=== PATIENT | female | born 1935 | race Caucasian/White ===

== ENCOUNTER 2017-06-23 13:25 | Inpatient (IN) | payer MEDICARE, BC ==
[~2017-06-23] VITALS: Ht 160 cm; Wt 72.6 kg
[~2017-06-23 13:25] MED LIST: ASPIRIN-LOW81 MG ORAL; CLONAZEPAM1 MG PO; SYNTHROID137 MCG ORAL; WELLBUTRIN SR200 MG ORAL; ZETIA10 MG ORAL
[2017-06-23] MEDS ORDERED: Sodium Chloride 500ML 500 ML IV ONE (13:27)
[2017-06-23 13:38] VITALS: BP 135/75
--- NOTE | 2017-06-23 14:13 | Emergency Room Report ---
History of Present Illness General Chief Complaint: Syncope Source: Patient, EMS Present Illness HPI 81-year-old female presents ED status post syncopal episode. Patient states she was out today and was standing up filling out a form when she felt dizzy and fell and hit her head. Upon arrival patient states she feels better. Denies any headache. Denies any chest pain or shortness of breath. Patient states the last time she passed out like this she was "dehydrated". States she is compliant with her medications. Denies any alcohol or drug use. No other aggravating or relieving factors. Denies any other associated symptoms Allergies: Coded Allergies: PENICILLINS (Unverified Allergy, Unknown, 06/23/17) THIAMINE (VITAMIN B1) (Unverified Allergy, Unknown, 06/23/17) Patient History Past Medical History: none Past Surgical History: none Pertinent Family History: none Social History: Denies: smoking, alcohol use, drug use Now: No Immunizations: UTD Reviewed Nursing Documentation: PMH: Agreed, PSxH: Agreed Review of Systems All Other Systems: negative except mentioned in HPI Physical Exam Vital Signs Date Time Temp Pulse Resp B/P (MAP) Pulse Ox O2 Delivery O2 Flow Rate FiO2 06/23/17 13:12 76 14 135/75 93 Room Air Sp02 EP Interpretation: reviewed, normal General Appearance: no apparent distress, alert, GCS 15, non-toxic Head: normocephalic, atraumatic Eyes: bilateral eye normal inspection, bilateral eye PERRL ENT: hearing grossly normal, normal pharynx, no angioedema, normal voice Neck: full range of motion, supple/symm/no masses Respiratory: chest non-tender, lungs clear, normal breath sounds, speaking full sentences Cardiovascular #1: regular rate, rhythm, no edema Cardiovascular #2: 2+ carotid (R), 2+ carotid (L), 2+ radial (R), 2+ radial (L) , 2+ dorsalis pedis (R), 2+ dorsalis pedis (L) Gastrointestinal: normal bowel sounds, non tender, soft, non-distended, no guarding, no rebound Rectal: deferred Genitourinary: normal inspection, no CVA tenderness Musculoskeletal: back normal, gait/station normal, normal range of motion, non- tender Neurologic: alert, oriented x3, responsive, motor strength/tone normal, sensory intact, speech normal Psychiatric: judgement/insight normal, memory normal, mood/affect normal, no suicidal/homicidal ideation Reflexes: 3+ bicep (R), 3+ bicep (L), 3+ tricep (R), 3+ tricep (L), 3+ knee (R) , 3+ knee (L) Skin: normal color, no rash, warm/dry, well hydrated Lymphatic: no adenopathy Medical Decision Making Diagnostic Impression: Primary Impression: Syncope Qualified Codes: R55 - Syncope and collapse ER Course Hospital Course 81-year-old F presents ED s/p syncopal episode. Differential diagnoses include: ME/unstable angina, arrythmia, dehydration, CVA/ TIA Clinical course Patient placed on stretcher. on cardiac cath technologist. After initial history and physical I ordered labs, EKG, chest x-ray, IVFs, CT Brain, CT Cspine labs reviewed- no leukocytosis, hemoglobin/hematocrit ok, electrolytes okay, troponins negative EKG- NSR, no acute ishcemic changes interpreted by me Chest x-ray- L sided effusion CT brain-unremarkable CT Cspine no acute fx I spoke to PMD Dr. Aguilar Navarro; He agrees to admission. Requests that we admit to Dr. Roberts Case discussed with Dr. Roberts and he agreed to accept the patient to his service for further care and support I. I feel this is a highly complex case requiring extensive working including EKG/Rhythm strip, Xray/CT/US, Blood/urine lab work, repeat exams while in ED, and administration of strong opiates/narcotics for pain control, admission to hospital or close patient follow up. Diagnosis - syncope admitted to telemetry in serious condition Labs Test 06/23/17 14:10 06/23/17 16:10 06/24/17 21:45 06/25/17 05:40 Total Creatine Kinase 165 U/L (26-308) Creatine Kinase MB 3.7 NG/ML (0.0-3.6) Creatine Kinase MB Relative Index 2.2 Pro-B-Type Natriuretic Peptide 80 pg/mL (0-125) Urine Color Pale yellow Urine Appearance Clear Urine pH 6 (4.5-8.0) Urine Specific [place] 1.020 (1.005-1.035) Urine Protein Negative (NEGATIVE) Urine Glucose (UA) Negative (NEGATIVE) Urine Ketones Negative (NEGATIVE) Urine Occult Blood 1+ (NEGATIVE) Urine Nitrite Negative (NEGATIVE) Urine Bilirubin Negative (NEGATIVE) Urine Urobilinogen Normal MG/DL (0.0-1.0) Urine Leukocyte Esterase 2+ (NEGATIVE) Urine RBC 5-10 /HPF (0 - 2) Urine WBC 5-10 /HPF (0 - 2) Urine Squamous Epithelial Cells Occasional /LPF Urine Bacteria Few /HPF (NONE) Troponin I 0.002 ng/mL (0.000-0.056) White Blood Count 6.6 K/UL (4.8-10.8) Red Blood Count 4.47 M/UL (4.20-5.40) Hemoglobin 14.1 G/DL (12.0-16.0) Hematocrit 43.0 % (37.0-47.0) Mean Corpuscular Volume 96 FL (80-99) Mean Corpuscular Hemoglobin 31.5 PG (27.0-31.0) Mean Corpuscular Hemoglobin Concent 32.7 G/DL (32.0-36.0) Red Cell Distribution Width 13.3 % (11.6-14.8) Platelet Count 265 K/UL (150-450) Mean Platelet Volume 7.9 FL (6.5-10.1) Neutrophils (%) (Auto) 68.1 % (45.0-75.0) Lymphocytes (%) (Auto) 19.6 % (20.0-45.0) Monocytes (%) (Auto) 10.0 % (1.0-10.0) Eosinophils (%) (Auto) 1.5 % (0.0-3.0) Basophils (%) (Auto) 0.9 % (0.0-2.0) Sodium Level 140 MMOL/L (136-145) Potassium Level 4.1 MMOL/L (3.5-5.1) Chloride Level 106 MMOL/L (98-107) Carbon Dioxide Level 25 MMOL/L (21-32) Anion Gap 9 mmol/L (5-15) Blood Urea Nitrogen 17 mg/dL (7-18) Creatinine 1.0 MG/DL (0.55-1.30) Estimat Glomerular Filtration Rate mL/min (>60) Glucose Level 101 MG/DL (74-106) Calcium Level 8.9 MG/DL (8.5-10.1) Total Bilirubin 0.7 MG/DL (0.2-1.0) Aspartate Amino Transf (AST/SGOT) 17 U/L (15-37) Alanine Aminotransferase (ALT/SGPT) 28 U/L (12-78) Alkaline Phosphatase 68 U/L (46-116) Total Protein 7.2 G/DL (6.4-8.2) Albumin 3.4 G/DL (3.4-5.0) Globulin 3.8 g/dL Albumin/Globulin Ratio 0.9 (1.0-2.7) EKG Diagnostic Results Rate: normal Rhythm: NSR ST Segments: no acute changes ASA given to the pt in ED: No Rhythm Strip Diag. Results EP Interpretation: yes Rhythm: NSR, no PVC's, no ectopy Chest X-Ray Diagnostic Results Chest X-Ray Diagnostic Results : Chest X-Ray Ordered: Yes # of Views/Limited/Complete: 1 View Indication: Other - syncope Interpretation: no consolidation, no pneumothorax, no acute cardiopulmonary disease, other - atelectasis/effusion Impression: Other - small L effusion Electronically Signed by: Electronically signed by Dariusz Barnes MD CT/MRI/US Diagnostic Results CT/MRI/US Diagnostic Results #1: Imaging Test Ordered: CT Head Impression no acute process CT/MRI/US Diagnostic Results #2: Imaging Test Ordered: CT Cspine Impression no acute process Last Vital Signs Date Time Temp Pulse Resp B/P (MAP) Pulse Ox O2 Delivery O2 Flow Rate FiO2 06/23/17 13:38 77 14 135/75 93 Room Air Status: improved Disposition: ADMITTED INPATIENT Condition: Serious Signed Out To: DARIUSZ Ruiz M.D. Jun 23, 2017 14:13
[2017-06-23 14:27] LABS: BASOPHILS % (AUTO) 1.3 % (0.0-2.0); EOSINOPHILS % (AUTO) 1.6 % (0.0-3.0); LYMPHOCYTES % (AUTO) 17.5 % (20.0-45.0); MEAN CORPUSCULAR HEMOGLOBIN 31.2 PG (27.0-31.0); MEAN CORPUSCULAR HGB CONC 32.3 G/DL (32.0-36.0); MEAN CORPUSCULAR VOLUME 96 FL (80-99); MONOCYTES % (AUTO) 10.1 % (1.0-10.0); NEUTROPHILS % (AUTO) 69.5 % (45.0-75.0); PLATELET COUNT 260 K/UL (150-450); RED CELL DISTRIBUTION WIDTH 13.4 % (11.6-14.8); WHITE BLOOD COUNT 9.5 K/UL (4.8-10.8)
[2017-06-23 14:35] LABS: ANION GAP 9 mmol/L (5-15); CALCIUM 8.8 MG/DL (8.5-10.1); CARBON DIOXIDE 28 MMOL/L (21-32); CHLORIDE 105 MMOL/L (98-107); CREATININE 1.3 MG/DL (0.55-1.30); POTASSIUM 4.3 MMOL/L (3.5-5.1); SODIUM 142 MMOL/L (136-145)
--- NOTE | 2017-06-23 14:38 | Diagnostic Imaging Report ---
Indications: Loss of consciousness, syncope Technique: Spiral acquisitions obtained through the brain. Angled axial and coronal 5 x 5 mm slices were reconstructed. Total dose length product 1305 mGycm. CTDI vol(s) 70 mGy. Dose reduction achieved using automated exposure control Comparison: None Findings: There is mild age-related enlargement of the ventricles and minimally of the extra axial CSF spaces. There is mild periventricular deep white matter low-attenuation. Possible old lacunar infarcts are seen in the internal capsules bilaterally. No acute intracranial hemorrhage or edema. No mass effect nor midline shift. Normal cornelius-white differentiation. The calvarium is intact. 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
[2017-06-23 14:52] LABS: ALANINE AMINOTRANSFERASE 31 U/L (12-78); ALBUMIN/GLOBULIN RATIO 0.9 (1.0-2.7); ASPARTATE AMINO TRANSFERASE 31 U/L (15-37); CKMB 3.7 NG/ML (0.0-3.6); TOTAL PROTEIN 7.3 G/DL (6.4-8.2)
--- NOTE | 2017-06-23 14:57 | Diagnostic Imaging Report ---
Indication: SYNCOPE, head pain, neck pain Technique: Spiral acquisitions obtained through the cervical spine. No IV contrast utilized. Multiplanar reconstructions were generated. Total dose length product 297 mGycm. CTDIvol(s) 13 mGy. Dose reduction achieved using automated exposure control Comparison: None Findings: There is reversal of the normal cervical lordosis. There is minimal anterior offset of C3 on C4. Bony alignment is otherwise normal. No acute fractures. No dislocations. There is degenerative narrowing of the anterior atlantoaxial joint. There is a subchondral cysts within the odontoid. There is degenerative narrowing of the lateral C1-2 joints, and a subchondral degenerative cyst within the left C1 lateral mass. At C2-3, the disc space is preserved. No significant disc bulge or protrusion, spinal stenosis, or neural foraminal stenosis. The spinal canal and neural foramina are somewhat obscured by streak artifact from dental amalgam. There is fusion, likely congenital, of the right C2-3 facet. There is degenerative change of the left facet. At C3-4, the disc space is preserved. No significant disc bulge or protrusion, spinal stenosis, or neural foraminal stenosis. There is considerable degenerative proliferative change of the right facet, less severe degenerative change of the right facet At C4-5, there is moderate degenerative disc narrowing. No significant disc bulge or protrusion. Posterior osteophytes on the left may impinge slightly on the left lateral recess. There is moderate to severe narrowing of the left neural foramen. There is minimal narrowing of the right neural foramen. There is bilateral mild facet arthrosis. At C5-6, there is mild to moderate degenerative disc narrowing. There is moderate to severe left neural foraminal stenosis. No significant disc bulge or protrusion or spinal stenosis there is mild bilateral facet arthrosis. At C6-7, the disc space is preserved. No significant disc bulge or protrusion, spinal stenosis, or neural foraminal narrowing. At C7-T1, there is mild bilateral facet arthrosis. No significant disc bulge or protrusion, disc space narrowing, spinal stenosis, or neural foraminal stenosis. The included extraspinal soft tissues are unremarkable except for some pleural scarring at the right lung apex. There is mucosal disease of the right sphenoid sinus. Impression: No acute bony trauma Degenerative changes, as detailed on a level by level basis above Sinus disease The CT scanner at [facility] is accredited by the [employer] and the scans are performed using protocols designed to limit radiation exposure to as low as reasonably achievable to attain images of sufficient resolution adequate for diagnostic evaluation.
--- NOTE | 2017-06-23 15:38 | Diagnostic Imaging Report ---
Indication: SYNCOPE Technique: One view of the chest Comparison: None Findings: Left lateral hemidiaphragm is obscured. Small effusion or atelectasis/patchy consolidation not excludable. The remainder of the lungs and pleural spaces are clear. Surgical clips are seen in the right axilla Impression: Possible small left pleural effusion and possible focal atelectasis or consolidation
[2017-06-23 16:22] VITALS: BP 128/59
[2017-06-23 16:27] LABS: APPEARANCE,URINE CLEAR; KETONES,URINE NEGATIVE (NEGATIVE); LEUKOCYTE ESTERASE ,URINE 2+ (NEGATIVE); NITRITE,URINE NEGATIVE (NEGATIVE); PH,URINE 6 (4.5-8.0); PROTEIN,URINE NEGATIVE (NEGATIVE); UROBILINOGEN,URINE NORMAL MG/DL (0.0-1.0)
[2017-06-23 16:39] LABS: BACTERIA,URINE FEW /HPF; SQUAMOUS EPITHELIAL CELL,UR OCCASIONAL /LPF (NONE/OCC)
--- NOTE | 2017-06-23 17:35 | History & Physical ---
History and Physical History & Physicial dict syncope azotemia UTI MIHAELA BARAJAS Jun 23, 2017 17:35
[2017-06-23] MEDS ORDERED: SYNTHROID75 MCG ORAL (17:48)
[2017-06-23] MEDS ORDERED: KLONOPIN0.5 MG ORAL (17:48)
[2017-06-23] MEDS ORDERED: TYLENOL EXTRA500 MG ORAL (17:48)
[2017-06-23] MEDS ORDERED: Acetaminophen 500mg (ES) tab ORAL PRN (18:00)
[2017-06-23] MEDS ORDERED: clonazePAM 0.5mg tab ORAL PRN (18:00)
[2017-06-23] MEDS: Bactrim DS (160mg/800mg) tab ORAL SCH (18:51)
[2017-06-23] MEDS: D5 1/2NS 1,000 ML IV SCH (19:00)
[2017-06-23 20:00] VITALS: BP 139/63
--- NOTE | 2017-06-23 20:30 | History and Physical Report ---
DATE OF ADMISSION: 06/23/2017 CHIEF COMPLAINT: Syncope. HISTORY OF PRESENT ILLNESS: This 81-year-old woman was at [facility] signing up for a class when she suddenly felt faint and passed out hitting her head. She was brought to the emergency room by paramedics. She states this has never happened to her before. She has had occasional episodes of dizziness. She had evaluation and found no significant findings including a negative CT of the brain. She had a mild azotemia and a few white cells in the urine. She has no complaints of dysuria. She has been eating and drinking normally and has felt well up until this event. PAST MEDICAL HISTORY: Hyperlipidemia, hypothyroidism, anxiety, and osteoarthritis. She states she has had a cardiac evaluation that was negative in the past. ALLERGIES: Penicillin and thiamine. SOCIAL HISTORY: She does not drink or smoke and does not use alcohol. She quit smoking 40 years ago. REVIEW OF SYSTEMS: Otherwise unremarkable. She has no chest pain or shortness of breath. She has no nausea, vomiting or diarrhea. She has no dysuria. PHYSICAL EXAMINATION: GENERAL: The patient is overweight. VITAL SIGNS: Normal. HEENT: The head is normocephalic. NECK: No jugular venous distention. CHEST: Clear. CARDIAC: Rhythm is regular. ABDOMEN: Soft and nontender. EXTREMITIES: No clubbing, cyanosis, or edema. NEUROLOGIC: Able to move all extremities. Alert and oriented. LABORATORY AND DIAGNOSTIC DATA: Laboratory studies show mild azotemia with BUN 35 and creatinine 1.3. Electrolytes are normal. Albumin is normal. Hematology is normal. Urinalysis shows 5 to 10 white cells and 5 to 10 red cells. IMPRESSION: 1. Syncope. 2. Mild azotemia, possible dehydration or chronic kidney disease. 3. Mild urinary tract infection. 4. Hypothyroid. 5. Hyperlipidemia. PLAN: We will give intravenous fluids and Bactrim. Carotid ultrasound and echocardiogram will be obtained. We will monitor her heart and check troponin. Cardiology consultations has been requested. Kd Roberts M.D. DR: JENNIFER JOB#: [id number] CC: Steven Hanson M.D.
[2017-06-24] VITALS: BP 142/74
[2017-06-24 04:00] VITALS: BP 152/78
[2017-06-24 08:00] VITALS: BP 159/74
[2017-06-24] MEDS: D5 1/2NS 1,000 ML IV SCH ×2 (08:22→21:28)
[2017-06-24] MEDS: Aspirin EC 81mg tab ORAL SCH (08:23)
[2017-06-24] MEDS: Bactrim DS (160mg/800mg) tab ORAL SCH ×2 (08:25→21:27)
[2017-06-24] MEDS: BuPROPion SR 100mg tab ORAL SCH (09:13)
--- NOTE | 2017-06-24 11:26 | Cardiology Report ---
APPROVED REPORT EKG Measurement Heart [id number] Normal sinus rhythm Possible Anterior infarct, age undetermined Abnormal ECG
[2017-06-24 12:00] VITALS: BP 144/74
[2017-06-24 16:00] VITALS: BP 155/77
[2017-06-24 20:00] VITALS: BP 133/75
[2017-06-25] VITALS: BP 133/87
[2017-06-25 07:45] LABS: BASOPHILS % (AUTO) 0.9 % (0.0-2.0); EOSINOPHILS % (AUTO) 1.5 % (0.0-3.0); LYMPHOCYTES % (AUTO) 19.6 % (20.0-45.0); MEAN CORPUSCULAR HEMOGLOBIN 31.5 PG (27.0-31.0); MEAN CORPUSCULAR HGB CONC 32.7 G/DL (32.0-36.0); MEAN CORPUSCULAR VOLUME 96 FL (80-99); MEAN PLATELET VOLUME 7.9 FL (6.5-10.1); NEUTROPHILS % (AUTO) 68.1 % (45.0-75.0); PLATELET COUNT 265 K/UL (150-450); RED BLOOD COUNT 4.47 M/UL (4.20-5.40); RED CELL DISTRIBUTION WIDTH 13.3 % (11.6-14.8); WHITE BLOOD COUNT 6.6 K/UL (4.8-10.8)
[2017-06-25 08:00] VITALS: BP 135/77
[2017-06-25 08:00] LABS: ALANINE AMINOTRANSFERASE 28 U/L (12-78); ALBUMIN/GLOBULIN RATIO 0.9 (1.0-2.7); ANION GAP 9 mmol/L (5-15); ASPARTATE AMINO TRANSFERASE 17 U/L (15-37); CALCIUM 8.9 MG/DL (8.5-10.1); CARBON DIOXIDE 25 MMOL/L (21-32); CHLORIDE 106 MMOL/L (98-107); POTASSIUM 4.1 MMOL/L (3.5-5.1); SODIUM 140 MMOL/L (136-145); TOTAL PROTEIN 7.2 G/DL (6.4-8.2)
[2017-06-25] MEDS: Aspirin EC 81mg tab ORAL SCH (09:16)
[2017-06-25] MEDS: Bactrim DS (160mg/800mg) tab ORAL SCH (09:17)
[2017-06-25] MEDS: BuPROPion SR 100mg tab ORAL SCH (09:17)
[2017-06-25] MEDS: D5 1/2NS 1,000 ML IV SCH (11:00)
[2017-06-25 12:00] VITALS: BP 140/71
--- NOTE | 2017-06-25 12:19 | General Progress Note ---
Assessment/Plan Assessment/Plan dc held last night due to dizziness and weakness today she feels fine trop neg ekg no changes dc home Subjective Cardiovascular: Denies: chest pain Respiratory: Denies: shortness of breath Allergies: Coded Allergies: PENICILLINS (Unverified Allergy, Unknown, 06/23/17) THIAMINE (VITAMIN B1) (Unverified Allergy, Unknown, 06/23/17) Objective Last 24 Hour Vital Signs Date Time Temp Pulse Resp B/P (MAP) Pulse Ox O2 Delivery O2 Flow Rate FiO2 06/25/17 12:01 66 69 80 06/25/17 12:00 97.5 67 18 140/71 93 06/25/17 08:00 65 06/25/17 08:00 98.2 66 19 135/77 91 06/25/17 04:00 57 06/25/17 00:00 67 66 80 06/25/17 00:00 96.6 67 20 133/87 91 Room Air 06/25/17 00:00 60 06/24/17 20:00 73 06/24/17 20:00 97.2 68 20 133/75 92 Room Air 06/24/17 16:00 73 06/24/17 16:00 96.1 70 19 155/77 Room Air Intake and Output 06/25/17 06/26/17 19:00 07:00 Intake Total 150 ml Balance 150 ml IV Total 150 ml Laboratory Tests 06/24/17 14:00: Troponin I 0.000 06/24/17 21:45: Troponin I 0.002 06/25/17 05:40: White Blood Count 6.6, Red Blood Count 4.47, Hemoglobin 14.1, Hematocrit 43.0, Mean Corpuscular Volume 96, Mean Corpuscular Hemoglobin 31.5H, Mean Corpuscular Hemoglobin Concent 32.7, Red Cell Distribution Width 13.3, Platelet Count 265, Mean Platelet Volume 7.9, Neutrophils (%) (Auto) 68.1, Lymphocytes (%) (Auto) 19.6L, Monocytes (%) (Auto) 10.0, Eosinophils (%) (Auto) 1.5, Basophils (%) ( Auto) 0.9, Sodium Level 140, Potassium Level 4.1, Chloride Level 106, Carbon Dioxide Level 25, Anion Gap 9, Blood Urea Nitrogen 17, Creatinine 1.0, Estimat Glomerular Filtration Rate , Glucose Level 101, Calcium Level 8.9, Total Bilirubin 0.7, Aspartate Amino Transf (AST/SGOT) 17, Alanine Aminotransferase ( ALT/SGPT) 28, Alkaline Phosphatase 68, Total Protein 7.2, Albumin 3.4, Globulin 3.8, Albumin/Globulin Ratio 0.9L Height (Feet): 5 Height (Inches): 3.00 Weight (Pounds): 160 General Appearance: no apparent distress Cardiovascular: normal rate Respiratory/Chest: lungs clear MIHAELA BARAJAS Jun 25, 2017 12:19
[2017-06-25] MEDS ORDERED: D5 1/2NS 1000ml IV ONE (13:29)
--- NOTE | 2017-06-25 15:15 | Consultation ---
DATE OF CONSULTATION: 06/23/2017 CARDIOLOGY CONSULTATION CONSULTING PHYSICIAN: Steven Hanson M.D. REQUESTING PHYSICIAN: Kd Roberts M.D. REASON FOR CONSULTATION: Syncope. HISTORY OF PRESENT ILLNESS: This 81-year-old [place] . She was alone at the diner table with no surrounding people. No warmth. No discomfort, but suddenly felt faint and passed out. She apparently fell fully flat on her head with a loud bang. It was witnessed by staff and paramedics were summoned. The patient woke up with no sequelae, having headache. She did not have loss of bladder or bowel function. No seizure activity. The patient was seen in the emergency room and admitted for further management. A CAT scan of the brain revealed no bleed and diffuse white matter disease. No acute process. PAST MEDICAL HISTORY: Hyperlipidemia, hypothyroidism, and osteoarthritis. MEDICATIONS PRIOR TO ADMISSION: None. ALLERGIES: Thiamin and penicillin. SOCIAL HISTORY: Quit smoking over 40 years ago. No alcohol or substance abuse. REVIEW OF SYSTEMS: Notable. She has felt lightheaded and dizzy on some occasions, but never passed out. She did have a cardiac workup in the past few years that included a stress test that was normal. There is no known history of irregular heartbeats, seizures, or strokes with no history of diabetes or thyroid disorder. There is no history of blood clots in the legs or asthma. PHYSICAL EXAMINATION: VITAL SIGNS: Blood pressure 138/80, pulse 68, respiratory rate 18, and afebrile. HEENT: Conjunctivae are pink. Sclerae are anicteric. Oropharynx clear. NECK: Supple. Jugular venous pressure normal. No bruits. No carotid sinus hypersensitivity. LUNGS: Clear. CARDIAC: Regular. Normal S1 and S2. No murmur. There is a fourth heart sound. ABDOMEN: Soft and nontender. EXTREMITIES: Good pulses. No edema. NEUROLOGIC: Nonfocal. Occiput has a hematoma that is tender. LABORATORY DATA: EKG sinus rhythm with no acute abnormalities. Labs are reviewed and notable for BUN of 35 and creatinine 1.3. Electrolytes normal. IMPRESSION: Syncopal episode, at present appears to be vagally mediated. There does not appear to be any structural heart disease or evidence of cardiac arrhythmia. Contributing factors likely to include hypovolemia, dehydration, azotemia, and possible urinary tract infection. PLAN: 1. Hydrate with IV fluids. 2. Check orthostatics, carotid ultrasound, and 2D echocardiogram. 3. Monitor orthostatic blood pressure. 4. Check thyroid panel. 5. Continue cardiac monitoring. Steven Hanson M.D. DR: JOEL JOB#: [id number] CC:
--- NOTE | 2017-06-25 15:30 | Progress Note ---
DATE: 06/24/2017 CARDIOLOGY PROGRESS NOTE SUBJECTIVE: The patient was seen twice today, 12 noon and 11:30 p.m. The patient initially had no complaints. Later in the afternoon, felt dizzy and lightheaded upon standing up. OBJECTIVE: VITAL SIGNS: Blood pressure 136/81 lying and 145/86 standing. Monitored rhythm sinus. No ectopy. Heart rate in the 60s, respiratory rate 18. She is afebrile. HEENT: There is an occipital hematoma. NECK: Supple. Carotid sinus massage negative. LUNGS: Clear. CARDIAC: Regular. Normal S1, S2 with no murmur. ABDOMEN: Soft. No edema. IMAGING: Carotid duplex, no flow-limiting abnormalities. Echocardiogram, normal ejection fraction and no significant valvular disease. IMPRESSION: 1. No signs of orthostasis at this time. Possible orthostasis prior to admission with prerenal azotemia. 2. Hypovolemia. 3. Dehydration. 4. Syncope, most likely due to vasovagally mediated event. Presently, no signs of structural heart disease. PLAN: 1. Maintain hydration. 2. Cardiac monitoring. 3. Mobilize. 4. No additional diagnostic studies presently planned. 5. If recurring syncope or near syncopal episodes, may consider outpatient study. Steven Hanson M.D. DR: JOEL JOB#: [id number] CC:
--- NOTE | 2017-06-26 21:01 | Progress Note ---
DATE: 06/25/2017 CARDIOLOGY PROGRESS NOTE SUBJECTIVE: The patient is without dizziness this morning. Monitored rhythm remains sinus with no ectopy. OBJECTIVE: VITAL SIGNS: Continued to reveal no signs of orthostasis. HEENT: Mild occipital hematoma. NECK: Supple. LUNGS: Clear. CARDIAC: Regular. Normal S1, S2. ABDOMEN: Soft. EXTREMITIES: No edema. LABORATORY DATA: White count 5.5 and hemoglobin 14.1. Chemistry panel entirely within normal limits. IMPRESSION AND PLAN: 1. Vasovagally-mediated syncopal episode. No signs of orthostatic hypotension. 2. Mild hypovolemia, dehydration, and prerenal azotemia on admission, resolved and corrected with IV fluid hydration. No signs of flow-limiting carotid artery disease. 3. Normal cardiac ejection fraction without hemodynamically significant valve disease. 4. Stable for outpatient management. 5. Maintain adequate hydration. Consider electrophysiologic evaluation for tilt-table study in the event of recurring syncopal episodes. Steven Hanson M.D. DR: JAROD JOB#: [id number] CC:
--- NOTE | 2017-06-27 07:54 | Discharge Summary ---
Discharge Summary Hospital Course Date of Admission Jun 23, 2017 at 17:48 Date of Discharge Jun 25, 2017 at 13:30 Admitting Diagnosis SYNCOPE HPI Conchis Wong is a 81 year old female who was admitted on Jun 23, 2017 at 17:48 for Syncope Hospital Course dc summary #[id number] Discharge Medications Continued Medications: Acetaminophen* (Tylenol Extra Strength*) 500 Mg Tablet 500 MG ORAL Q4HR PRN for Mild Pain/Temp > 100.5, TAB 0 Refills Aspirin (Aspirin EC) 81 Mg Tablet.dr 81 MG ORAL DAILY, TAB Bupropion Hcl (Wellbutrin Sr) 200 Mg Tablet.er 200 MG ORAL for 30 Days, TAB 0 Refills Clonazepam (Clonazepam) 1 Mg Tablet 1 MG PO, TAB Clonazepam* (Klonopin*) 0.5 Mg Tablet 0.5 MG ORAL Q4HR PRN for For Anxiety, #15 TAB 0 Refills Ezetimibe (Zetia*) 10 Mg Tablet 10 MG ORAL BEDTIME, TAB Levothyroxine Sodium* (Synthroid*) 75 Mcg Tablet 75 MCG ORAL DAILY, TAB Take in the morning on an empty stomach, at least 30 minutes before food. Discharge Condition Upon Discharge: stable Discharge Disposition Patient was discharged to Home (01) Discharge Diagnoses: Discharge Instructions Discharge Instructions Special Instructions I have been assigned to complete a D/C Summary on this account. I was not involved in the patient management Juliana Chen NP ([place]) Jun 27, 2017 07:54
--- NOTE | 2017-06-27 10:18 | Cardiology Report ---
APPROVED REPORT EXAM: Two-dimensional and M-mode echocardiogram with Doppler and color Doppler. INDICATION Syncope M-Mode DIMENSIONS IVSd0.7 (0.7-1.1cm)Left Atrium (MM)2.3 (1.6-4.0cm) LVDd4.4 (3.5-5.6cm)Aortic Root2.3 (2.0-3.7cm) PWd1.0 (0.7-1.1cm)Aortic Cusp Exc.1.7 (1.5-2.0cm) LVDs1.9 (2.5-4.0cm) PWs2.3 cm Other Information Technically limited study due to poor acoustical windows. Normal left ventricular chamber size, systolic function and wall motion to extent visualized. Left ventricular ejection fraction grossly estimated to be 65%. Study quality precludes accurate assessment of regional wall motion. No left ventricular hypertrophy. No evidence of pericardial effusion. All other cardiac chamber sizes are within normal limits. Focal aortic valve sclerosis with adequate cusp excursion. Thickened mitral valve leaflets with normal excursion. Mitral annulus and aortic root calcification. Pulmonic valve not well visualized. Normal tricuspid valve structure. A color flow and spectral Doppler study was performed and revealed: Mild aortic insufficiency. Mild mitral regurgitation. Mitral diastolic velocities suggest reduced left ventricular relaxation c/w mild LV diastolic dysfunction (Grade I). Mild tricuspid regurgitation. Tricuspid systolic velocities suggests peak right ventricular systolic pressure of 33 mmHg. Trace pulmonic regurgitation present.
--- NOTE | 2017-06-27 20:15 | Discharge Summary 2 SIG ---
DATE OF ADMISSION: 06/23/2017 DATE OF DISCHARGE: 06/25/2017 REASON FOR ADMISSION: 81-year-old female with past medical history significant for hyperlipidemia, anxiety, hypothyroidism, and osteoarthritis was in [facility] for signing in to class when she felt fainted and passed out. Paramedics brought her to emergency room for evaluation. The patient reported prior occasional episodes of dizziness. Upon evaluation in the emergency room, CT of the head revealed no acute intracranial pathology. Laboratory workup showed mild azotemia with BUN -35 and creatinine -1.3. Urinalysis with pyuria, but no dysuria. No urinary symptoms. The patient stated that she was in good state of health prior to the episode. The patient had a cardiac evaluation in the past, which was negative. EKG revealed normal sinus rhythm. Troponin was negative. The patient was admitted to telemetry floor for further workup for syncope. ADMITTING DIAGNOSES: 1. Syncope. 2. Mild azotemia. 3. Possible dehydration. 4. Possible chronic kidney disease. 5. Mild urinary tract infection. 6. Hypothyroidism. 7. Hyperlipidemia. HOSPITAL COURSE: The patient was admitted to telemetry floor for cardiac monitoring. Cardiology consult was requested. The patient was initially on intravenous fluids. Cardiology consult was requested. Orthostatic vital signs revealed no evidence of orthostatic changes. Echocardiogram revealed preserved ejection fraction of 65%. No left ventricular hypertrophy. Normal left ventricular chamber size, systolic function, and wall motion. Right ventricular systolic pressure of 33. The patient was initially empirically started on antibiotics for possible urinary tract infection, however , urine culture grew mixed urogenital contaminants. Antibiotics stopped. Serial troponin were negative. EKG revealed no acute ST changes. No evidence of arrhythmia. Chest x-ray showed atelectasis. No other acute cardiopulmonary pathology. CT of the C-spine revealed no acute bony trauma. Compressor Assembler closely followed the patient. Per warper tender, the patient had vasovagally mediated syncopal episode and likely had a mild hypovolemia with dehydration and prerenal azotemia on admission, which was corrected with IV fluid hydration. No signs of flow-limiting carotid artery disease. Normal cardiac ejection fraction. Levothyroxine and statin were continued. Compressor Assembler cleared the patient for discharge. The patient was stable for discharge home. FINAL DIAGNOSES: 1. Vasovagally mediated syncope. 2. Mild hypovolemia. 3. Dehydration. 4. Prerenal azotemia, resolved. 5. Hypothyroidism. 6. Hyperlipidemia. DISCHARGE MEDICATIONS: See medication reconciliation list. DISCHARGE INSTRUCTIONS: The patient was discharged home. Follow up with the primary medical doctor. The patient was advised to consider electrophysiological evaluation for tilt-table study in the event of recurring syncopal episode. Kd Roberts M.D. I have been assigned to dictate discharge summary on this account and I was not involved in the patient's management. Juliana Chen ([facility] NTonoPTono DR: FRIDA JOB#: [id number] CC: BETTY
--- NOTE | 2017-06-30 11:01 | Diagnostic Imaging Report ---
APPROVED REPORT CPT Code: 14350 Present Symptoms Lower Extremity Pain: Bilateral BILATERAL: Imaging reveals a patent deep venous system bilaterally. There is no evidence of thrombus within the femoral, popliteal or tibial segments. The greater saphenous veins are also within normal limits. Doppler indicates normal spontaneous flow within these segments.
--- NOTE | 2017-06-30 11:01 | Diagnostic Imaging Report ---
APPROVED REPORT CPT Code: 78208 Vascular Symptoms Syncope Doppler Spectral Velocity Analysis RightLeft RIGHT SIDE: CCA - Imaging reveals no significant plaque within the extracranial carotid arteries. The Doppler spectral flow analysis is within normal limits throughout the extracranial carotid arteries. VERTEBRAL - The vertebral artery is patent, without evidence of stenosis or steal. carotid arteries. The Doppler signal indicates the degree of stenosis is minimal (5%) in the internal carotid, and (5%) in the external carotid arteries. VERTEBRAL - The vertebral artery is patent, without evidence of stenosis or steal.VERTEBRAL - The vertebral artery is patent, without evidence of stenosis or steal.
== END 2017-06-25 13:30 | disposition home or self-care (01) | DRG 641 ==
LOC: EDBD 13:25 → EMR 14:00 → 2E 15:04 → EDBEDREQ 16:19 → OBSVTOIN 17:48
DX: E86.0 Dehydration (principal); E86.1 Hypovolemia; N39.0 Urinary tract infection, site not specified; E03.9 Hypothyroidism, unspecified; E78.5 Hyperlipidemia, unspecified; R55 Syncope and collapse; Z88.0 Allergy status to penicillin; Z88.8 Allergy status to other drugs, medicaments and biological substances; Z87.891 Personal history of nicotine dependence; F41.9 Anxiety disorder, unspecified
CPT/HCPCS: 36415; 70450; 71010; 72125; 80053; 81003; 82550; 82553; 83880; 84484; 85025; 87086; 93005; 93306; 93880; 93970; 99285